=== PATIENT | male | born 1960 | race Caucasian/White ===

== ENCOUNTER → 2017-02-11 | Day surgery (SDC) | payer BC ==
[~2017-02-11] MED LIST: ALLOPURINOL300 MG PO; BACLOFEN10 MG PO; COLCRYS0.6 MG PO; FLEXERIL10 MG; HYDROCODON-ACE1 EAC7 PO; IBUPROFEN600 MG PO; LACRI-LUBE0.7 GM OPT OD; LORTAB 101 TAB 10/5 DOB; MEDROL4 MG/DOSE-; NAFCILLIN SODIUM IM/IV; OMEPRAZOLE20 M1 PO; OMEPRAZOLE40 M1 PO; PREDNISONE PO; SIMVASTATIN40 MG PO; VICOPROFEN 200-1 TAB; VOLTAREN50 MG PO; VOLTAREN75 MG PO; ZYLOPRIM PO
--- NOTE | ~2017-02-11 | OR ---
Unit #: [id number] #: [id number] Patient: SILVANA SRINIVASAN [id number] [address] [place], [place] [address] [id number] MR#: [id number] NAME: SILVANA SRINIVASAN. ROOM: Date of Procedure: 02/11/2017 Admission Date: 02/11/2017 Surgeon: Jeff Ram M.D. : 1960 Attending Physician: Jeff Ram M.D. Referring Physician: Jeff Ram M.D. Primary Care Physician: Chano Nguyen M.D. OPERATIVE REPORT PRIMARY CARE PHYSICIAN Chano Nguyen M.D. PREOPERATIVE DIAGNOSES The patient has longstanding history of gastroesophageal reflux and has come for elective upper endoscopy. 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 PROCEDURES PERFORMED Upper gastrointestinal endoscopy and biopsies. POSTOPERATIVE DIAGNOSES Endoscopically, it was not clear that the patient had any Tavarez segment. Biopsies obtained from the distal esophageal mucosa from the Tavarez segment. In addition, a small hiatus hernia was also noted. Rest of the examination up to third part of duodenum was normal. SEDATION USED MAC. RECOMMENDATIONS We will follow up the biopsy results carefully and if these are negative, no further evaluation is indicated in the future. DESCRIPTION OF PROCEDURE Following detailed explanation of potential risks and complications of an upper endoscopy, namely perforation, bleeding, and complications related to sedation, the patient was brought to GI lab and laid in the left lateral decubitus position. Lubricated tip of the Olympus video upper endoscope was passed through bite block into the proximal esophagus under direct vision. The entire esophageal mucosa was examined. 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 Biopsies obtained from this area at the squamocolumnar junction and sent for histology. The scope was then advanced into the gastric cavity and the latter was insufflated. Mucosa of the fundus, body, and antrum was examined and appeared unremarkable. Pylorus was intubated with visualization of the normal duodenal bulb and second and third part of duodenum. Upon withdrawal and retroflexion, incisura, cardia, and greater curve examined and no additional findings noted. The scope was then withdrawn in the distal esophagus. The entire esophageal mucosa was examined all the way up to pharynx, no additional findings noted. The Unit #: [id number] #: [id number] Patient: SILVANA SRINIVASAN patient tolerated the procedure without any postprocedure complications. Dictated by... Shelbi Santos/penny TD: 02/12/2017 01:24 JOB #: [id number] OPERATIVE REPORT Page 1 of 1 X Jeff Ram MD PROCEDURE OPERATIVE NOTE
== END | disposition home or self-care (01) ==
LOC: COPS 07:52
PROVIDERS: Internal Medicine Gastroenterology
PROC: 0DB38ZX Excision of Lower Esophagus, Via Natural or Artificial Opening Endoscopic, Diagnostic (ICD-10-PCS; principal; 2017-02-11 09:00)
DX: K20.9 Esophagitis, unspecified (principal)
CPT/HCPCS: 88305